=== PATIENT | female | born 1985 | race Caucasian/White ===

== ENCOUNTER 2017-06-10 18:09 | Emergency (ER) | payer OTHER ==
[2017-06-10 18:24] VITALS: BP 103/67
[2017-06-10] MEDS ORDERED: Sodium Chloride 0.9% 10 ML Syringe FLUSH PRN (19:07)
[2017-06-10] MEDS ORDERED: Lactated Ringers 1,000 ML IV ONE (19:07)
[2017-06-10] MEDS ORDERED: Metoclopramide 10 MG/2 ML SDV IVPUSH ONE (19:08)
[2017-06-10] MEDS ORDERED: diphenhydrAMINE 50 MG/ML SDV IVPUSH ONE (19:10)
[2017-06-10] MEDS ORDERED: Lactated Ringers 500 ML IV ONE (20:18)
--- NOTE | 2017-06-10 20:57 | EDM.PDOC ---
ED HPI GENERAL MEDICAL PROBLEM - General Chief Complaint: Gastrointestinal Problem Stated Complaint: VOMITING,10 WKS PREG Time Seen by Provider: 06/10/17 18:52 Source of Information: Reports: Patient History Limitations: Reports: No Limitations - History of Present Illness INITIAL COMMENTS - FREE TEXT/NARRATIVE: 31-year-old female presents for evaluation and treatment of nausea and vomiting. Patient is reportedly 10 weeks . Last menstrual period was April 02. She is a . She reports that she's had extensive nausea and vomiting with all her pregnancies but this one has been far worse then her other pregnancies. Her RESIDENTIAL RECYCLE DRIVER providers Dr. Damico. She has not seen Dr. Hammer yet. She was prescribed some Zofran but has not filled this yet. She is also been taking Unisom and vitamin B6 without any symptom relief. She reports associated symptoms of abdominal pain and cramping, nausea, lightheadedness and concentrated urine. Reports she's been having some abdominal pain and cramping in her upper abdomen. No back pain. Denies any dysuria, fevers or vaginal bleeding. Patient reports that her daughter was tested positive for influenza. She was started on Tamiflu about 2 days ago. She appreciates that her symptoms significantly worsened after filling the Tamiflu. Blood type is A-. - Related Data Allergies Allergy/AdvReac Type Severity Reaction Status Date / Time hepatitis B virus vaccine Allergy Anaphylactic Verified 06/10/17 18:24 [Hepatitis B Virus Vaccine] Shock azithromycin [From Zithromax] AdvReac Stomach Verified 06/10/17 18:24 Upset Home Meds: Home Meds Docosahexanoic Acid [ Dha] 200 mg PO DAILY 06/10/17 [History] Past Medical History - Past Health History Medical/Surgical History: Denies Medical/Surgical History HEENT History: Reports: None Cardiovascular History: Reports: None Respiratory History: Reports: None Gastrointestinal History: Reports: GERD Musculoskeletal History: Reports: None Neurological History: Reports: None Psychiatric History: Reports: None Endocrine/Metabolic History: Reports: None - Past Surgical History Musculoskeletal Surgical History: Reports: Other (See Below) Social & Family History - Family History Cardiac: Reports: Afib Oncologic: Reports: Colon Other Oncologic Family History: grandmother colon - Tobacco Use Smoking Status *Q: Never Smoker Second Hand Smoke Exposure: No - Caffeine Use Caffeine Use: Reports: Coffee - Alcohol Use Days Per Week of Alcohol Use: 0 - Recreational Drug Use Recreational Drug Use: No ED ROS GENERAL - Review of Systems Review Of Systems: See Below Constitutional: Denies: Fever Respiratory: Denies: Cough GI/Abdominal: Reports: Abdominal Pain (upper abdomen), Nausea, Vomiting. Denies : Diarrhea : Reports: Other (no vaginal bleeding). Denies: Dysuria Musculoskeletal: Denies: Back Pain ED EXAM - Physical Exam Exam: See Below Exam Limited By: No Limitations General Appearance: Alert, WD/WN, No Apparent Distress Ears: Normal External Exam Nose: Normal Inspection Throat/Mouth: Normal Inspection, Normal Lips, Normal Voice, No Airway Compromise Neck: Normal Inspection Respiratory/Chest: No Respiratory Distress, Lungs Clear, Normal Breath Sounds Cardiovascular: Normal Peripheral Pulses, Regular Rate, Rhythm, No Murmur GI/Abdominal Exam: Normal Bowel Sounds, Soft, Non-Tender Movement: Active (on ultrasound, questionable heart tones) Neurological: Alert, Oriented, Normal Cognition Psychiatric: Normal Affect, Normal Mood Skin Exam: Warm, Dry, Normal Color Course - Vital Signs Last Recorded V/S: Last Vital Signs Temp 37.0 C 06/10/17 18:20 Pulse 70 06/10/17 18:20 Resp 16 06/10/17 18:20 BP 103/67 06/10/17 18:20 Pulse Ox 100 06/10/17 18:20 - Orders/Labs/Meds Orders: Active Orders 24 hr Category Date Time Status Heart Tones [RC] ASDIRECTED Care 06/10/17 19:10 Active Peripheral IV Care [RC] . DIRECTED Care 06/10/17 19:07 Active Peripheral IV Insertion Adult [OM.PC] Routine Oth 06/10/17 19:06 Ordered Labs: Laboratory Tests 06/10/17 06/10/17 06/10/17 Range/Units 18:47 18:47 18:47 WBC 8.92 (3.98-10.04) K/mm3 RBC 4.58 (3.98-5.22) M/mm3 Hgb 13.7 (11.2-15.7) gm/L Hct 39.2 (34.1-44.9) % MCV 85.6 (79.4-94.8) fl MCH 29.9 (25.6-32.2) pg MCHC 34.9 (32.2-35.5) g/dl RDW Std Deviation 41.4 (36.4-46.3) fL Plt Count 250 (182-369) K/mm3 MPV 9.5 (9.4-12.3) fl Neut % (Auto) 69.5 (34.0-71.1) % Lymph % (Auto) 21.1 (19.3-51.7) % [place] % (Auto) 8.5 (4.7-12.5) % Eos % (Auto) 0.6 L (0.7-5.8) Baso % (Auto) 0.2 (0.1-1.2) % Neut # (Auto) 6.20 H (1.56-6.13) K/mm3 Lymph # (Auto) 1.88 (1.18-3.74) K/mm3 [place] # (Auto) 0.76 H (0.24-0.36) K/mm3 Eos # (Auto) 0.05 (0.04-0.36) K/mm3 Baso # (Auto) 0.02 (0.01-0.08) K/mm3 Sodium 138 (136-145) mEq/L Potassium 3.7 (3.5-5.1) mEq/L Chloride 103 (98-107) mEq/L Carbon Dioxide 25 (21-32) mEq/L Anion Gap 13.7 (5-15) BUN 6 L (7-18) mg/dL Creatinine 0.5 L (0.55-1.02) mg/dL Est Cr Clr Drug Dosing 136.71 mL/min Estimated GFR (MDRD) > 60 (>60) mL/min BUN/Creatinine Ratio 12.0 L (14-18) Glucose 74 (74-106) mg/dL Calcium 8.9 (8.5-10.1) mg/dL Total Bilirubin 0.3 (0.2-1.0) mg/dL AST 19 (15-37) U/L ALT 19 (14-59) U/L Alkaline Phosphatase 48 (46-116) U/L Total Protein 7.3 (6.4-8.2) g/dl Albumin 3.7 (3.4-5.0) g/dl Globulin 3.6 gm/dL Albumin/Globulin Ratio 1.0 (1-2) HCG, Quant 562105.0 mIU/mL Urine Color (Yellow) Urine Appearance (Clear) Urine pH (5.0-8.0) Ur Specific [place] (1.005-1.030) Urine Protein (Negative) Urine Glucose (UA) (Negative) Urine Ketones (Negative) Urine Occult Blood (Negative) Urine Nitrite (Negative) Urine Bilirubin (Negative) Urine Urobilinogen (0.2-1.0) Ur Leukocyte Esterase (Negative) Urine RBC (0-5) /hpf Urine WBC (0-5) /hpf Ur Epithelial Cells (0-5) /hpf Urine Bacteria (FEW) /hpf Urine Mucus (FEW) /hpf 06/10/17 Range/Units 20:25 WBC (3.98-10.04) K/mm3 RBC (3.98-5.22) M/mm3 Hgb (11.2-15.7) gm/L Hct (34.1-44.9) % MCV (79.4-94.8) fl MCH (25.6-32.2) pg MCHC (32.2-35.5) g/dl RDW Std Deviation (36.4-46.3) fL Plt Count (182-369) K/mm3 MPV (9.4-12.3) fl Neut % (Auto) (34.0-71.1) % Lymph % (Auto) (19.3-51.7) % [place] % (Auto) (4.7-12.5) % Eos % (Auto) (0.7-5.8) Baso % (Auto) (0.1-1.2) % Neut # (Auto) (1.56-6.13) K/mm3 Lymph # (Auto) (1.18-3.74) K/mm3 [place] # (Auto) (0.24-0.36) K/mm3 Eos # (Auto) (0.04-0.36) K/mm3 Baso # (Auto) (0.01-0.08) K/mm3 Sodium (136-145) mEq/L Potassium (3.5-5.1) mEq/L Chloride (98-107) mEq/L Carbon Dioxide (21-32) mEq/L Anion Gap (5-15) BUN (7-18) mg/dL Creatinine (0.55-1.02) mg/dL Est Cr Clr Drug Dosing mL/min Estimated GFR (MDRD) (>60) mL/min BUN/Creatinine Ratio (14-18) Glucose (74-106) mg/dL Calcium (8.5-10.1) mg/dL Total Bilirubin (0.2-1.0) mg/dL AST (15-37) U/L ALT (14-59) U/L Alkaline Phosphatase (46-116) U/L Total Protein (6.4-8.2) g/dl Albumin (3.4-5.0) g/dl Globulin gm/dL Albumin/Globulin Ratio (1-2) HCG, Quant mIU/mL Urine Color Yellow (Yellow) Urine Appearance Clear (Clear) Urine pH 6.0 (5.0-8.0) Ur Specific [place] 1.020 (1.005-1.030) Urine Protein Negative (Negative) Urine Glucose (UA) Negative (Negative) Urine Ketones 2+ H (Negative) Urine Occult Blood Negative (Negative) Urine Nitrite Negative (Negative) Urine Bilirubin Negative (Negative) Urine Urobilinogen 0.2 (0.2-1.0) Ur Leukocyte Esterase Trace H (Negative) Urine RBC 0-5 (0-5) /hpf Urine WBC 0-5 (0-5) /hpf Ur Epithelial Cells 0-5 (0-5) /hpf Urine Bacteria Few (FEW) /hpf Urine Mucus Not seen (FEW) /hpf Meds: Medications Discontinued Medications Generic Name Dose Route Start Last Admin Trade Name Freq PRN Reason Stop Dose Admin Diphenhydramine HCl 25 mg 06/10/17 19:10 06/10/17 19:19 Benadryl IVPUSH 06/10/17 19:11 25 mg ONETIME ONE Administration Lactated Ringer's 1,000 mls @ 999 mls/hr 06/10/17 19:07 06/10/17 19:16 Ringers, Lactated IV 06/10/17 20:07 999 mls/hr .BOLUS ONE Administration Lactated Ringer's 500 mls @ 999 mls/hr 06/10/17 20:18 06/10/17 20:24 Ringers, Lactated IV 06/10/17 20:48 999 mls/hr .BOLUS ONE Administration Metoclopramide HCl 7.5 mg 06/10/17 19:08 06/10/17 19:17 Reglan IVPUSH 06/10/17 19:09 7.5 mg ONETIME ONE Administration Sodium Chloride 10 ml 06/10/17 19:07 06/10/17 19:18 Saline Flush FLUSH 10 ml ASDIRECTED PRN Administration Keep Vein Open - Re-Assessments/Exams Free Text/Narrative Re-Assessment/Exam: 06/10/17 21:05 I reviewed the lab results with the patient. she is feeling greatly improved with the IV Reglan and fluids. No vomiting since entering the ER. Difficulty obtaining heart tones. OB nursing staff came and evaluated the patient as well. They heard "a flicker" of heartbeat and possibly some movement. Discussed with the patient. likely still early for heart tones. She has not had any vaginal bleeding or lower abdominal cramping. She is going to see her OB this week. Will forgo transvaginal ultrasound tonight. I'll have the patient fill her Zofran. Feel her symptoms likely greatly worsened due to the Tamiflu. I'll have her discuss this with her interstate bus driver if she would like to discontinue this. Discharge instructions as documented. Departure - Departure Time of Disposition: 21:11 Disposition: Home, Self-Care 01 Condition: Good Clinical Impression: Nausea & vomiting Qualifiers: Vomiting type: unspecified Vomiting Intractability: non-intractable Qualified Code(s): R11.2 - Nausea with vomiting, unspecified Qualifiers: Weeks of gestation: 10 weeks Qualified Code(s): Z3A.10 - 10 weeks gestation of - Discharge Information Instructions: Nausea and Vomiting, Adult, Zeft-km-Eqcg Referrals: PCP,None [Primary Care Provider] - Sima Nance MD [Physician] - Forms: ED Department Discharge Additional Instructions: Recommend filling the Zofran and taking this as prescribed. Clear liquids and bland foods as tolerated. May advance to a more normal diet as planned. Follow-up with your RESIDENTIAL RECYCLE DRIVER as planned. Please return to the ER if your symptoms change or worsen. - My Orders Last 24 Hours: My Active Orders 06/10/17 19:06 Peripheral IV Insertion Adult [OM.PC] Routine 06/10/17 19:07 Peripheral IV Care [RC] . DIRECTED 06/10/17 19:10 Heart Tones [RC] ASDIRECTED - Assessment/Plan Last 24 Hours: My Active Orders 06/10/17 19:06 Peripheral IV Insertion Adult [OM.PC] Routine 06/10/17 19:07 Peripheral IV Care [RC] . DIRECTED 06/10/17 19:10 Heart Tones [RC] ASDIRECTED
== END 2017-06-10 21:25 | disposition home or self-care (01) ==
LOC: JD.ED 18:09
DX: O21.9 Vomiting of pregnancy, unspecified (principal); Z3A.10 10 weeks gestation of pregnancy; Z88.7 Allergy status to serum and vaccine; Z88.1 Allergy status to other antibiotic agents
CPT/HCPCS: 36415; 80053; 81001; 84702; 85025; 96361; 96374; 96375; 99284; J1200; J2765; J7050; J7120

== ENCOUNTER 2018-01-06 04:32 | Inpatient (IN) | payer OTHER ==
[2018-01-06] MEDS ORDERED: Nalbuphine 20 MG/ML 1 ML Syringe IVPUSH PRN (04:58)
[2018-01-06] MEDS ORDERED: Sodium Chloride 0.9% 10 ML Syringe FLUSH PRN (04:58)
[2018-01-06] MEDS ORDERED: Ondansetron 4 MG/2 ML SDV IVPUSH PRN ×2 (04:58→05:36)
[2018-01-06] MEDS ORDERED: Oxytocin/Lactated Ringers 10 UNIT/1,000 ML BAG IV SCH (05:00)
[2018-01-06] MEDS: Lactated Ringers 1,000 ML IV SCH ×3 (05:00→06:11)
[2018-01-06] MEDS ORDERED: Ampicillin 2 GM in Sodium Chloride 0.9% 100 ML IV ONE (05:04)
[2018-01-06] MEDS ORDERED: Sodium Chloride 0.9% 100 ML ONE (05:05)
[2018-01-06] MEDS ORDERED: fentaNYL 100 MCG/2 ML SDV ONE (05:28)
[2018-01-06] MEDS ORDERED: ePHEDrine 50 MG/ML SDV IVPUSH PRN (05:36)
[2018-01-06] MEDS ORDERED: Meperidine PF 50 MG/ML Syringe IVPUSH PRN (05:36)
[2018-01-06] MEDS ORDERED: diphenhydrAMINE 50 MG/ML SDV IVPUSH PRN (05:36)
[2018-01-06] MEDS ORDERED: fentaNYL 100 MCG/2 ML SDV EPIDUR PRN (05:36)
[2018-01-06] MEDS ORDERED: Bupivacaine/fentaNYL/NS 100 ML Bag EPIDUR SCH (05:45)
--- NOTE | 2018-01-06 06:41 | PCM.PREANE ---
Preanesthetic Assessment - Procedure Proposed Procedure: MARYAM - Anesthesia/Transfusion/Family Hx Anesthesia History: Prior Anesthesia Without Reaction Family History of Anesthesia Reaction: No Transfusion History: No Prior Transfusion(s) - Review of Systems General: No Symptoms Pulmonary: No Symptoms Cardiovascular: No Symptoms Gastrointestinal: No Symptoms Neurological: No Symptoms Other: Reports: None - Physical Assessment NPO Status Date: 01/06/18 NPO Status Time: 04:00 Pulse: 72 O2 Sat by Pulse Oximetry: 98 Respiratory Rate: 18 Blood Pressure: 123/69 Temperature: 36.8 C Height: 1.63 m Weight: 71.668 kg ASA Class: 2 Mental Status: Alert & Oriented x3 Airway Class: Mallampati = 1 Dentition: Reports: Normal Dentition Thyro-Mental Finger Breadths: 3 Mouth Opening Finger Breadths: 3 ROM/Head Extension: Full Lungs: Clear to Auscultation, Normal Respiratory Effort Cardiovascular: Regular Rate, Regular Rhythm - Lab Values: Laboratory Last Values WBC 9.51 K/mm3 (3.98-10.04) 01/06/18 05:05 RBC 3.85 M/mm3 (3.98-5.22) L 01/06/18 05:05 Hgb 12.6 gm/L (11.2-15.7) 01/06/18 05:05 Hct 36.7 % (34.1-44.9) 01/06/18 05:05 MCV 95.3 fl (79.4-94.8) H 01/06/18 05:05 MCH 32.7 pg (25.6-32.2) H 01/06/18 05:05 MCHC 34.3 g/dl (32.2-35.5) 01/06/18 05:05 RDW Std Deviation 46.9 fL (36.4-46.3) H 01/06/18 05:05 Plt Count 146 K/mm3 (182-369) L 01/06/18 05:05 MPV 9.2 fl (9.4-12.3) L 01/06/18 05:05 Neut % (Auto) 68.2 % (34.0-71.1) 01/06/18 05:05 Lymph % (Auto) 21.7 % (19.3-51.7) 01/06/18 05:05 [place] % (Auto) 8.3 % (4.7-12.5) 01/06/18 05:05 Eos % (Auto) 1.1 (0.7-5.8) 01/06/18 05:05 Baso % (Auto) 0.2 % (0.1-1.2) 01/06/18 05:05 Neut # (Auto) 6.49 K/mm3 (1.56-6.13) H 01/06/18 05:05 Lymph # (Auto) 2.06 K/mm3 (1.18-3.74) 01/06/18 05:05 [place] # (Auto) 0.79 K/mm3 (0.24-0.36) H 01/06/18 05:05 Eos # (Auto) 0.10 K/mm3 (0.04-0.36) 01/06/18 05:05 Baso # (Auto) 0.02 K/mm3 (0.01-0.08) 01/06/18 05:05 - Allergies Allergies/Adverse Reactions: Allergies Allergy/AdvReac Type Severity Reaction Status Date / Time hepatitis B virus vaccine Allergy Anaphylactic Verified 06/10/17 18:24 [Hepatitis B Virus Vaccine] Shock azithromycin [From Zithromax] AdvReac Stomach Verified 06/10/17 18:24 Upset - Blood Blood Available: No Product(s) Available: None - Anesthesia Plan Pre-Op Medication Ordered: None - Acknowledgements Anesthesia Type Planned: Epidural Pt an Appropriate Candidate for the Planned Anesthesia: Yes Alternatives and Risks of Anesthesia Discussed w Pt/Guardian: Yes Pt/Guardian Understands and Agrees with Anesthesia Plan: Yes PreAnesthesia Questionnaire - Past Health History Medical/Surgical History: Denies Medical/Surgical History HEENT History: Reports: None Cardiovascular History: Reports: None Respiratory History: Reports: None Gastrointestinal History: Reports: GERD Musculoskeletal History: Reports: None Neurological History: Reports: None Psychiatric History: Reports: None Endocrine/Metabolic History: Reports: None - Past Surgical History Musculoskeletal Surgical History: Reports: Other (See Below) - HOME MEDS Home Medications: Home Meds Docosahexanoic Acid [ Dha] 200 mg PO DAILY 06/10/17 [History] - CURRENT (IN HOUSE) MEDS Current Meds: Current Medications Diphenhydramine HCl (Benadryl) 25 mg IVPUSH Q6H PRN PRN Reason: Pruritis Ephedrine Sulfate (Ephedrine Sulfate) 5 mg IVPUSH ASDIRECTED PRN PRN Reason: Hypotension Fentanyl (Sublimaze) 100 mcg EPIDUR Q3H PRN PRN Reason: Pain Last Admin: 01/06/18 06:06 Dose: 100 mcg Fentanyl/Bupivacaine HCl (Fentanyl/Bupivacaine/Ns 2 Mcg-0.125% 100 Ml) 100 ml EPIDUR ASDIRECTED [facility] Last Admin: 01/06/18 06:06 Dose: 100 ml Lactated Ringer's (Ringers, Lactated) 1,000 mls @ 100 mls/hr IV ASDIRECTED [facility] Last Admin: 01/06/18 06:11 Dose: 999 mls/hr Oxytocin/Lactated Ringer's (Pitocin In Lr 10 Units/1,000 Ml) 10 unit in 1,000 mls @ 500 mls/hr IV .CONTINUOUS [facility] Meperidine HCl (Demerol) 12.5 mg IVPUSH ONETIME PRN PRN Reason: Shivering Nalbuphine HCl (Nubain) 10 mg IVPUSH Q2H PRN PRN Reason: pain Ondansetron HCl (Zofran) 4 mg IVPUSH Q4H PRN PRN Reason: Nausea/Vomiting Last Admin: 01/06/18 05:24 Dose: 4 mg Ondansetron HCl (Zofran) 4 mg IVPUSH ONETIME PRN PRN Reason: Nausea/Vomiting Sodium Chloride (Saline Flush) 10 ml FLUSH ASDIRECTED PRN PRN Reason: Keep Vein Open Discontinued Medications Fentanyl (Sublimaze) Confirm Administered Dose 100 mcg .ROUTE .STK-MED ONE Stop: 01/06/18 05:29 Ampicillin Sodium 2 gm/ Sodium (Chloride) 100 mls @ 200 mls/hr IV ONETIME ONE Stop: 01/06/18 05:33 Last Admin: 01/06/18 05:00 Dose: 200 mls/hr Sodium Chloride (Normal Saline) Confirm Administered Dose 100 mls @ as directed .ROUTE .STK-MED ONE Stop: 01/06/18 05:06
--- NOTE | 2018-01-06 07:01 | PCM.LDHP ---
L&D History of Present Illness - General Date of Service: 01/06/18 Admit Problem/Dx: Patient Status Order with Admit Dx/Problem 01/06/18 04:58 Patient Status [ADT] Routine Admission Diagnosis/Problem Admission Diagnosis/Problem Source of Information: Patient History Limitations: Reports: No Limitations - History of Present Illness Introduction:: Patient is a 32 y/o at 39 4/7 wks who presents in labor. Contractions started around 0200 this AM. No LOF yet. No other concerns. Pain Score: 8 - Related Data Allergies/Adverse Reactions: Allergies Allergy/AdvReac Type Severity Reaction Status Date / Time hepatitis B virus vaccine Allergy Anaphylactic Verified 06/10/17 18:24 [Hepatitis B Virus Vaccine] Shock azithromycin [From Zithromax] AdvReac Stomach Verified 06/10/17 18:24 Upset Home Medications: Home Meds Docosahexanoic Acid [ Dha] 200 mg PO DAILY 06/10/17 [History] Past Medical History Gastrointestinal History: Reports: GERD - Infectious Disease History Infectious Disease History: Reports: Herpes - Past Surgical History HEENT Surgical History: Reports: Oral Surgery GI Surgical History: Reports: Colonoscopy, EGD Musculoskeletal Surgical History: Reports: Other (See Below) (foot surger) Social & Family History - Family History Cardiac: Reports: Afib Oncologic: Reports: Colon Other Oncologic Family History: grandmother colon - Tobacco Use Smoking Status *Q: Never Smoker - Caffeine Use Caffeine Use: Reports: Coffee - Alcohol Use Alcohol Use History: No - Recreational Drug Use Recreational Drug Use: No H&P Review of Systems - Review of Systems: Review Of Systems: See Below General: Reports: No Symptoms Pulmonary: Reports: No Symptoms Cardiovascular: Reports: No Symptoms Gastrointestinal: Reports: No Symptoms Genitourinary: Reports: No Symptoms Musculoskeletal: Reports: No Symptoms Psychiatric: Reports: No Symptoms L&D Exam - Exam Exam: See Below - Vital Signs Vital Signs: Last Vital Signs Temp 36.8 C 01/06/18 06:40 Pulse 72 01/06/18 06:40 Resp 18 01/06/18 06:40 BP 123/69 01/06/18 06:40 Pulse Ox 98 01/06/18 06:40 Weight: 71.668 kg - OB Specific Contraction Intensity: Moderate to Strong Movement: Active Heart Tones: Present Heart Tones per Min: 145 Heart Rate (FHR) Variability: Moderate (6-25 bmp) Presentation: Vertex - Rausch Score Rausch Score Cervix Position: Anterior Rausch Score Consistency: Soft Rausch Score Effacement: >80% Rausch Score Dilation: > 5 cm Rausch Score 's Station: -1 ,0 Rausch Score Total: 12 - Exam General: Alert, Oriented, Cooperative Lungs: Clear to Auscultation, Normal Respiratory Effort Cardiovascular: Regular Rate, Regular Rhythm GI/Abdominal Exam: Soft, Non-Tender Genitourinary: Normal external exam Extremities: Normal Inspection Skin: Warm, Dry, Intact - Patient Data Lab Results Last 24 hrs: Laboratory Results - last 24 hr 01/06/18 Range/Units 05:05 WBC 9.51 (3.98-10.04) K/mm3 RBC 3.85 L (3.98-5.22) M/mm3 Hgb 12.6 (11.2-15.7) gm/L Hct 36.7 (34.1-44.9) % MCV 95.3 H (79.4-94.8) fl MCH 32.7 H (25.6-32.2) pg MCHC 34.3 (32.2-35.5) g/dl RDW Std Deviation 46.9 H (36.4-46.3) fL Plt Count 146 L (182-369) K/mm3 MPV 9.2 L (9.4-12.3) fl Neut % (Auto) 68.2 (34.0-71.1) % Lymph % (Auto) 21.7 (19.3-51.7) % [place] % (Auto) 8.3 (4.7-12.5) % Eos % (Auto) 1.1 (0.7-5.8) Baso % (Auto) 0.2 (0.1-1.2) % Neut # (Auto) 6.49 H (1.56-6.13) K/mm3 Lymph # (Auto) 2.06 (1.18-3.74) K/mm3 [place] # (Auto) 0.79 H (0.24-0.36) K/mm3 Eos # (Auto) 0.10 (0.04-0.36) K/mm3 Baso # (Auto) 0.02 (0.01-0.08) K/mm3 Result Diagrams: 01/06/18 05:05 - Problem List (1) 39 weeks gestation of SNOMED Code(s): 70029841 ICD Code: Z3A.39 - 39 WEEKS GESTATION OF Status: Acute Current Visit: Yes (2) GBS (group B Streptococcus carrier), +RV culture, currently SNOMED Code(s): 0400062929205, 107751468, 4519065754884 ICD Code: O99.820 - STREPTOCOCCUS B CARRIER STATE COMPLICATING Status: Acute Current Visit: Yes (3) Rh negative state in antepartum period SNOMED Code(s): 585462354 ICD Code: O09.899 - SUPERVISION OF OTHER HIGH RISK PREGNANCIES, UNSP TRIMESTER Status: Acute Current Visit: No Problem List Initiated/Reviewed/Updated: Yes Orders Last 24hrs: Active Orders 24 hr Category Date Time Status Patient Status [ADT] Routine ADT 01/06/18 04:58 Active Activity as Tolerated [RC] PFP Care 01/06/18 04:58 Active Communication Order [RC] ASDIRECTED Care 01/06/18 04:58 Active Heart Tones [RC] ASDIRECTED Care 01/06/18 05:00 Active Non Stress Test [RC] PER UNIT ROUTINE Care 01/06/18 04:58 Active Notify Provider [RC] PFP Care 01/06/18 04:58 Active Notify Provider [RC] PRN Care 01/06/18 04:58 Active Peripheral IV Care [RC] . DIRECTED Care 01/06/18 05:00 Active Pump Management, Intrathecal [RC] ASDIRECTED Care 01/06/18 05:01 Active Urinary Catheter Assessment [RC] ASDIRECTED Care 01/06/18 04:58 Active Vital Signs [RC] PER UNIT ROUTINE Care 01/06/18 04:58 Active Regular Diet [DIET] Diet 01/06/18 Breakfast Active RAPID PLASMA REAGIN,RPR [CHEM] Routine Lab 01/06/18 05:05 Received TYPE AND SCREEN [BBK] Stat Lab 01/06/18 05:05 Received Bupivacaine/fentaNYL/NS [fentaNYL/Bupivacaine/NS 2 MCG- Med 01/06/18 05:45 Active 0.125% 100 ML] 100 ml EPIDUR ASDIRECTED Lactated Ringers [Ringers, Lactated] 1,000 ml Med 01/06/18 05:00 Active IV ASDIRECTED Meperidine [Demerol] Med 01/06/18 05:36 Active 12.5 mg IVPUSH ONETIME PRN Nalbuphine [Nubain] Med 01/06/18 04:58 Active 10 mg IVPUSH Q2H PRN Ondansetron [Zofran] Med 01/06/18 05:36 Active 4 mg IVPUSH ONETIME PRN Ondansetron [Zofran] Med 01/06/18 04:58 Active 4 mg IVPUSH Q4H PRN Oxytocin/Lactated Ringers [Pitocin in LR 10 Units/1,000 Med 01/06/18 05:00 Active ML] 10 unit in 1,000 ml IV .CONTINUOUS Sodium Chloride 0.9% [Saline Flush] Med 01/06/18 04:58 Active 10 ml FLUSH ASDIRECTED PRN diphenhydrAMINE [Benadryl] Med 01/06/18 05:36 Active 25 mg IVPUSH Q6H PRN ePHEDrine [ePHEDrine Sulfate] Med 01/06/18 05:36 Active 5 mg IVPUSH ASDIRECTED PRN fentaNYL [Sublimaze] Med 01/06/18 05:36 Active 100 mcg EPIDUR Q3H PRN Electronic Heart Tones Ext w TOCO [WOMSER] Oth 01/06/18 04:58 Ordered Routine Electronic Heart Tones Internal [WOMSER] Per Unit Oth 01/06/18 04:58 Ordered Routine Peripheral IV Insertion Adult [OM.PC] Routine Oth 01/06/18 04:58 Ordered Resuscitation Status Routine Resus Stat 01/06/18 04:58 Ordered Medication Orders Diphenhydramine HCl (Benadryl) 25 mg IVPUSH Q6H PRN PRN Reason: Pruritis Ephedrine Sulfate (Ephedrine Sulfate) 5 mg IVPUSH ASDIRECTED PRN PRN Reason: Hypotension Fentanyl (Sublimaze) 100 mcg EPIDUR Q3H PRN PRN Reason: Pain Last Admin: 01/06/18 06:06 Dose: 100 mcg Fentanyl/Bupivacaine HCl (Fentanyl/Bupivacaine/Ns 2 Mcg-0.125% 100 Ml) 100 ml EPIDUR ASDIRECTED [facility] Last Admin: 01/06/18 06:06 Dose: 100 ml Lactated Ringer's (Ringers, Lactated) 1,000 mls @ 100 mls/hr IV ASDIRECTED [facility] Last Admin: 01/06/18 06:11 Dose: 999 mls/hr Infusion: 01/06/18 06:11 Dose: 999 mls/hr Admin: 01/06/18 05:25 Dose: 999 mls/hr Infusion: 01/06/18 05:25 Dose: 999 mls/hr Admin: 01/06/18 05:00 Dose: 999 mls/hr Oxytocin/Lactated Ringer's (Pitocin In Lr 10 Units/1,000 Ml) 10 unit in 1,000 mls @ 500 mls/hr IV .CONTINUOUS [facility] Meperidine HCl (Demerol) 12.5 mg IVPUSH ONETIME PRN PRN Reason: Shivering Nalbuphine HCl (Nubain) 10 mg IVPUSH Q2H PRN PRN Reason: pain Ondansetron HCl (Zofran) 4 mg IVPUSH Q4H PRN PRN Reason: Nausea/Vomiting Last Admin: 01/06/18 05:24 Dose: 4 mg Ondansetron HCl (Zofran) 4 mg IVPUSH ONETIME PRN PRN Reason: Nausea/Vomiting Sodium Chloride (Saline Flush) 10 ml FLUSH ASDIRECTED PRN PRN Reason: Keep Vein Open Assessment/Plan Comment:: 32 y/o at 39 4/7 wks presents in labor * Labs done * Rh negative, will assess baby blood type following delivery * Ampicillin started for GBS prophylaxis * Pain management per patient preference * Anticipate
[2018-01-06] MEDS ORDERED: Ampicillin 1 GM in Sodium Chloride 0.9% 100 ML IV SCH (08:00)
[2018-01-06] MEDS ORDERED: Meperidine 50 MG/ML Vial IVPUSH PRN (09:21)
--- NOTE | 2018-01-06 12:29 | PCM.DEL ---
L & D Note - General Info Date of Service: 01/06/18 - Delivery Note Labor: Spontaneous Delivery Outcome: Livebirth Delivery Method: Spontaneous Vaginal Delivery-Single Delivery Mode: Spontaneous Presentation: Right Occiput Anterior (LILIAM) (Compound presentation with posterior hand) Nuchal Cord: None Anesthesia Type: Epidural Amniotic Fluid Description: Clear Episiotomy Type: None Laceration: None Placenta: Intact, Spontaneous Cord: 3 Vessels Estimated Blood Loss: 300 : Suctioned, Bulb Syringe, Stimulated, Warmed, [place] Used, Warmer Used Score 1 min: 7 Score 5 min: 9 Delivery Comments (Free Text/Narrative):: Patient found to be complete and began pushing. With maternal pushing effort head delivered from an LILIAM presentation. Compound presentation noted with posterior hand by face/jaw. This could not be reduced. Slight suprapubic pressure placed which released anterior shoulder. With gentle downward traction remainder of delivered quickly. Cord clamped and cut. Cord blood obtained. Placenta allowed time to separate and expelled intact. Inspection of the perineum showed no lacerations - General Info Date of Service: 01/06/18 - Patient Data Vitals - Most Recent: Last Vital Signs Temp 36.8 C 01/06/18 07:34 Pulse 72 01/06/18 06:40 Resp 18 01/06/18 07:34 BP 123/69 01/06/18 07:34 Pulse Ox 98 01/06/18 06:40 Weight - Most Recent: 71.668 kg I&O - Last 24 Hours: Intake & Output 01/05/18 01/06/18 01/06/18 22:59 06:59 14:59 Intake Total 3100 Balance 3100 Lab Results Last 24 Hours: Laboratory Results - last 24 hr 01/06/18 01/06/18 Range/Units 05:05 05:05 WBC 9.51 (3.98-10.04) K/mm3 RBC 3.85 L (3.98-5.22) M/mm3 Hgb 12.6 (11.2-15.7) gm/L Hct 36.7 (34.1-44.9) % MCV 95.3 H (79.4-94.8) fl MCH 32.7 H (25.6-32.2) pg MCHC 34.3 (32.2-35.5) g/dl RDW Std Deviation 46.9 H (36.4-46.3) fL Plt Count 146 L (182-369) K/mm3 MPV 9.2 L (9.4-12.3) fl Neut % (Auto) 68.2 (34.0-71.1) % Lymph % (Auto) 21.7 (19.3-51.7) % [place] % (Auto) 8.3 (4.7-12.5) % Eos % (Auto) 1.1 (0.7-5.8) Baso % (Auto) 0.2 (0.1-1.2) % Neut # (Auto) 6.49 H (1.56-6.13) K/mm3 Lymph # (Auto) 2.06 (1.18-3.74) K/mm3 [place] # (Auto) 0.79 H (0.24-0.36) K/mm3 Eos # (Auto) 0.10 (0.04-0.36) K/mm3 Baso # (Auto) 0.02 (0.01-0.08) K/mm3 Blood Type A NEGATIVE Gel Antibody Screen Positive Med Orders - Current: Current Medications Diphenhydramine HCl (Benadryl) 25 mg IVPUSH Q6H PRN PRN Reason: Pruritis Ephedrine Sulfate (Ephedrine Sulfate) 5 mg IVPUSH ASDIRECTED PRN PRN Reason: Hypotension Fentanyl (Sublimaze) 100 mcg EPIDUR Q3H PRN PRN Reason: Pain Last Admin: 01/06/18 06:06 Dose: 100 mcg Fentanyl/Bupivacaine HCl (Fentanyl/Bupivacaine/Ns 2 Mcg-0.125% 100 Ml) 100 ml EPIDUR ASDIRECTED [facility] Last Admin: 01/06/18 06:06 Dose: 100 ml Lactated Ringer's (Ringers, Lactated) 1,000 mls @ 100 mls/hr IV ASDIRECTED [facility] Last Admin: 01/06/18 06:11 Dose: 999 mls/hr Oxytocin/Lactated Ringer's (Pitocin In Lr 10 Units/1,000 Ml) 10 unit in 1,000 mls @ 500 mls/hr IV .CONTINUOUS [facility] Ampicillin Sodium 1 gm/ Sodium (Chloride) 100 mls @ 200 mls/hr IV Q4H [facility] Last Admin: 01/06/18 08:40 Dose: 200 mls/hr Nalbuphine HCl (Nubain) 10 mg IVPUSH Q2H PRN PRN Reason: pain Ondansetron HCl (Zofran) 4 mg IVPUSH Q4H PRN PRN Reason: Nausea/Vomiting Last Admin: 01/06/18 05:24 Dose: 4 mg Ondansetron HCl (Zofran) 4 mg IVPUSH ONETIME PRN PRN Reason: Nausea/Vomiting Sodium Chloride (Saline Flush) 10 ml FLUSH ASDIRECTED PRN PRN Reason: Keep Vein Open Discontinued Medications Fentanyl (Sublimaze) Confirm Administered Dose 100 mcg .ROUTE .STK-MED ONE Stop: 01/06/18 05:29 Last Admin: 01/06/18 07:49 Dose: Not Given Ampicillin Sodium 2 gm/ Sodium (Chloride) 100 mls @ 200 mls/hr IV ONETIME ONE Stop: 01/06/18 05:33 Last Admin: 01/06/18 05:00 Dose: 200 mls/hr Sodium Chloride (Normal Saline) Confirm Administered Dose 100 mls @ as directed .ROUTE .STK-MED ONE Stop: 01/06/18 05:06 Last Admin: 01/06/18 07:49 Dose: Not Given Meperidine HCl (Demerol) 12.5 mg IVPUSH ONETIME PRN PRN Reason: Shivering Meperidine HCl (Meperidine) 12.5 mg IVPUSH ONETIME PRN PRN Reason: Shivering Stop: 01/06/18 12:00 - Problem List & Annotations (1) 39 weeks gestation of SNOMED Code(s): 69033525 Code(s): Z3A.39 - 39 WEEKS GESTATION OF Status: Acute Current Visit: Yes (2) GBS (group B Streptococcus carrier), +RV culture, currently SNOMED Code(s): 6470242636255, 709610127, 3672635727987 Code(s): O99.820 - STREPTOCOCCUS B CARRIER STATE COMPLICATING Status: Acute Current Visit: Yes (3) Rh negative state in antepartum period SNOMED Code(s): 019786667 Code(s): O09.899 - SUPERVISION OF OTHER HIGH RISK PREGNANCIES, UNSP TRIMESTER Status: Acute Current Visit: No (4) Vaginal delivery SNOMED Code(s): 285247079 Code(s): O80 - ENCOUNTER FOR FULL-TERM UNCOMPLICATED DELIVERY Status: Acute Current Visit: No - Problem List Review Problem List Initiated/Reviewed/Updated: Yes - My Orders Last 24 Hours: My Active Orders 01/06/18 04:58 Patient Status [ADT] Routine Activity as Tolerated [RC] PFP Communication Order [RC] ASDIRECTED Non Stress Test [RC] PER UNIT ROUTINE Notify Provider [RC] PFP Notify Provider [RC] PRN Urinary Catheter Assessment [RC] ASDIRECTED Vital Signs [RC] 09,15,21,03 Nalbuphine [Nubain] 10 mg IVPUSH Q2H PRN Ondansetron [Zofran] 4 mg IVPUSH Q4H PRN Sodium Chloride 0.9% [Saline Flush] 10 ml FLUSH ASDIRECTED PRN Electronic Heart Tones Ext w TOCO [WOMSER] Routine Electronic Heart Tones Internal [WOMSER] Per Unit Routine Peripheral IV Insertion Adult [OM.PC] Routine Resuscitation Status Routine 01/06/18 05:00 Heart Tones [RC] ASDIRECTED Peripheral IV Care [RC] . DIRECTED Lactated Ringers [Ringers, Lactated] 1,000 ml IV ASDIRECTED Oxytocin/Lactated Ringers [Pitocin in LR 10 Units/1,000 ML] 10 unit in 1,000 ml IV .CONTINUOUS 01/06/18 05:01 Pump Management, Intrathecal [RC] ASDIRECTED 01/06/18 05:05 ANTIBODY IDENTIFICATION [BBK] Stat RAPID PLASMA REAGIN,RPR [CHEM] Routine TYPE AND SCREEN [BBK] Stat 01/06/18 08:00 Ampicillin 1 gm Sodium Chloride 0.9% [Normal Saline] 100 ml IV Q4H 01/06/18 12:19 Patient Status Manage Transfer [TRANSFER] Routine 01/06/18 Breakfast Regular Diet [DIET] - Assessment Assessment:: 32 y/o G3 now P3003 PPD#0 from at 39 4/7 wks - Plan Plan:: * Rh negative, will assess baby blood type to see if Rhogam required * Encourage breast feeding * Discharge home in 1-2 days
[2018-01-06] MEDS ORDERED: Witch Hazel Medicated Pads 100/Jar TOP PRN (13:31)
[2018-01-06] MEDS ORDERED: Docusate Sodium 100 MG Cap PO PRN (13:31)
[2018-01-06] MEDS ORDERED: Benzocaine/Menthol 20%-0.5% Spray 56 GM Canister TOP PRN (13:31)
[2018-01-06] MEDS ORDERED: Lanolin 100% Cream 7 GM Tube TOP PRN (13:31)
[2018-01-06] MEDS: Acetaminophen 325 MG Tab PO PRN ×2 (14:42→21:11)
[2018-01-06] MEDS ORDERED: Bupivacaine 0.25% 10 ML SDV ONE (15:00)
[2018-01-06] MEDS: Ibuprofen 600 MG Tab PO PRN (18:53)
[2018-01-07] MEDS: Ibuprofen 600 MG Tab PO PRN ×2 (03:29→10:43)
[2018-01-07] MEDS: Acetaminophen 325 MG Tab PO PRN ×2 (08:06→16:33)
--- NOTE | 2018-01-07 08:55 | PCM.SN ---
- Free Text/Narrative Note: Sushma is a 32YO G3 now P3003 who had a normal spontaneous vaginal delivery at 39 4/7 wks gestational age. Ampicillin was given prophylactically for GBS POS status of mother. Patient denies excessive vaginal discharge, fevers/chills, headaches, blurry vision, malaise, LE edema, excessive pain/bleeding/cramping, chest pain, cough, SOB, or dyspnea. Abdominal exam revealed normally dileep uterus with level of fundus below umbilicus, no LE edema. Patient appears to be well-developed, well-nourished, and in good health, with no jaundice/pallor or other obvious concerns on exam. Objective VS 01/07/2018 are BP: 117/54 HR: 71 RR: 14 T: 36.7 O2: 97% on room air. ASSESSMENT 1. Normal spontaneous vaginal delivery at 39 4/7 wks gestational age 2. Normal Labor 3. Plans to breastfeed 4. Rh negative mother 5. GBS POS Mother PLAN 1. Plan to d/c home tomorrow 2. Support/encourage decision
--- NOTE | 2018-01-08 06:33 | PCM.DCSUM1 ---
Discharge Summary - Hospital Course Free Text/Narrative:: Enrico is a 32-year-old 3 now para 3003 white female who delivered early on the morning of 01/06/2018. A viable salcedo with Apgars of 7 and 9. She delivered vaginally. She had no lacerations. She had epidural for labor and analgesia. patient is done well. She is ambulating well, has minimal lochia and is voiding without concerns. She is desiring discharge home. - Discharge Data Discharge Date: 01/08/18 Discharge Disposition: Home, Self-Care 01 Condition: Good - Patient Instructions Diet: Regular Diet as Tolerated (Nursing diet with increase calories and calcium is recommended) Activity: As Tolerated (no intercourse or tampons until bleeding resolves) Driving: Do Not Drive (2 days) Showering/Bathing: May Shower (may take a bath) Notify Provider of: Fever, Increased Pain, Swelling and Redness, Nausea and/or Vomiting - Discharge Plan *PRESCRIPTION DRUG MONITORING PROGRAM REVIEWED*: No *COPY OF PRESCRIPTION DRUG MONITORING REPORT IN PATIENT SHANON: No Home Medications: Home Meds Vits #93/Iron Fum/FA [ Formula Tablet] 1 tab PO DAILY 01/06/18 [History] Acetaminophen [Tylenol] 650 mg PO Q4H PRN tablet 01/08/18 [Rx] Ibuprofen [Motrin] 600 mg PO Q6H PRN tablet 01/08/18 [Rx] Referrals: Sima Nance MD [Primary Care Provider] - (return to clinic Dr. Nance) - Discharge Summary/Plan Comment DC Time >30 min.: No Discharge Summary/Plan Comment: Discharge instructions: 1. Discharge home 2. Diet, activity and follow-up discussed with patient. Recommend nursing diet with increased calories and calcium. 3. Precautions given concern increased pain, bleeding, temperature, signs/ symptoms of DVT/PE. 4. Medications per home medication was printed, discussed with and given to the patient. 5. Return to clinic-Dr. Nance3-6 weeks Diagnosis: Term -delivered Condition: Good - Patient Data Vitals - Most Recent: Last Vital Signs Temp 36.6 C 01/07/18 22:20 Pulse 61 01/07/18 22:20 Resp 16 01/07/18 22:20 BP 101/66 01/07/18 22:20 Pulse Ox 96 01/07/18 22:20 Weight - Most Recent: 71.668 kg I&O - Last 24 hours: Intake & Output 01/07/18 01/07/18 01/08/18 14:59 22:59 06:59 Intake Total 360 Balance 360 Med Orders - Current: Current Medications Acetaminophen (Tylenol) 650 mg PO Q4H PRN PRN Reason: mild pain or fever Last Admin: 01/07/18 16:33 Dose: 650 mg Benzocaine/Menthol (Dermoplast Pain Relief [place]) 0 gm TOP ASDIRECTED PRN PRN Reason: Perineal Comfort Measure Docusate Sodium (Colace) 100 mg PO BID PRN PRN Reason: Constipation Emollient Ointment (Lansinoh Hpa) 0 gm TOP ASDIRECTED PRN PRN Reason: Sore Nipples Ibuprofen (Motrin) 600 mg PO Q6H PRN PRN Reason: Mild pain or fever Last Admin: 01/07/18 10:43 Dose: 600 mg Witch Renita (Tucks) 1 pad TOP ASDIRECTED PRN PRN Reason: Hemorrhoid pain Discontinued Medications Diphenhydramine HCl (Benadryl) 25 mg IVPUSH Q6H PRN PRN Reason: Pruritis Ephedrine Sulfate (Ephedrine Sulfate) 5 mg IVPUSH ASDIRECTED PRN PRN Reason: Hypotension Fentanyl (Sublimaze) Confirm Administered Dose 100 mcg .ROUTE .STK-MED ONE Stop: 01/06/18 05:29 Last Admin: 01/06/18 07:49 Dose: Not Given Fentanyl (Sublimaze) 100 mcg EPIDUR Q3H PRN PRN Reason: Pain Last Admin: 01/06/18 06:06 Dose: 100 mcg Fentanyl/Bupivacaine HCl (Fentanyl/Bupivacaine/Ns 2 Mcg-0.125% 100 Ml) 100 ml EPIDUR ASDIRECTED [facility] Last Admin: 01/06/18 06:06 Dose: 100 ml Lactated Ringer's (Ringers, Lactated) 1,000 mls @ 100 mls/hr IV ASDIRECTED [facility] Last Admin: 01/06/18 06:11 Dose: 999 mls/hr Oxytocin/Lactated Ringer's (Pitocin In Lr 10 Units/1,000 Ml) 10 unit in 1,000 mls @ 500 mls/hr IV .CONTINUOUS [facility] Ampicillin Sodium 2 gm/ Sodium (Chloride) 100 mls @ 200 mls/hr IV ONETIME ONE Stop: 01/06/18 05:33 Last Admin: 01/06/18 05:00 Dose: 200 mls/hr Sodium Chloride (Normal Saline) Confirm Administered Dose 100 mls @ as directed .ROUTE .STK-MED ONE Stop: 01/06/18 05:06 Last Admin: 01/06/18 07:49 Dose: Not Given Ampicillin Sodium 1 gm/ Sodium (Chloride) 100 mls @ 200 mls/hr IV Q4H [facility] Last Admin: 01/06/18 08:40 Dose: 200 mls/hr Meperidine HCl (Demerol) 12.5 mg IVPUSH ONETIME PRN PRN Reason: Shivering Meperidine HCl (Meperidine) 12.5 mg IVPUSH ONETIME PRN PRN Reason: Shivering Stop: 01/06/18 12:00 Nalbuphine HCl (Nubain) 10 mg IVPUSH Q2H PRN PRN Reason: pain Ondansetron HCl (Zofran) 4 mg IVPUSH Q4H PRN PRN Reason: Nausea/Vomiting Last Admin: 01/06/18 05:24 Dose: 4 mg Ondansetron HCl (Zofran) 4 mg IVPUSH ONETIME PRN PRN Reason: Nausea/Vomiting Sodium Chloride (Saline Flush) 10 ml FLUSH ASDIRECTED PRN PRN Reason: Keep Vein Open
[2018-01-08 06:39] VITALS: BP 104/56
[2018-01-08] MEDS: Ibuprofen 600 MG Tab PO PRN (09:04)
--- NOTE | 2018-01-08 22:21 | PCM48HPAN ---
Post Anesthesia Note - EVALUATION WITHIN 48HRS OF ANESTHETIC Vital Signs in Normal Range: Yes Patient Participated in Evaluation: Yes Respiratory Function Stable: Yes Airway Patent: Yes Cardiovascular Function Stable: Yes Hydration Status Stable: Yes Pain Control Satisfactory: Yes Nausea and Vomiting Control Satisfactory: Yes Mental Status Recovered: Yes - COMMENTS/OBSERVATIONS Free Text/Narrative:: Patient denied any anesthesia complications
== END 2018-01-08 09:25 | disposition home or self-care (01) | DRG 775 ==
LOC: JD.OBCHECK 04:32 → JD.OB 04:58 → JD.OBCHECK 05:18 → JD.OB 05:18 → OBSVTOIN 10:56 → JD.MS 10:57 → JD.OB 14:58
PROVIDERS: ADMIT Obstetrics & Gynecology; ATTEND Obstetrics & Gynecology
PROC: 10E0XZZ Delivery of Products of Conception, External Approach (ICD-10-PCS; principal; 2018-01-06)
PROC: 00HU33Z Insertion of Infusion Device into Spinal Canal, Percutaneous Approach (ICD-10-PCS; 2018-01-06)
DX: O99.824 Streptococcus B carrier state complicating childbirth (principal); O36.0130 Maternal care for anti-D [Rh] antibodies, third trimester, not applicable or unspecified; Z3A.39 39 weeks gestation of pregnancy; Z37.0 Single live birth
CPT/HCPCS: 36415; 51701; 59025; 59409; 85025; 86592; 86850; 86870; 86900; 86901; A9270-GY; J0290; J2405; J3010; J3490; J7030; J7120